=== PATIENT | male | born 1950 | race American Indian/Alaskan Native ===

== ENCOUNTER 2022-02-03 08:58 | Emergency (ER) | payer MEDICARE ==
--- NOTE | 2022-02-03 10:17 | Emergency Department Report ---
<BRIAN WHEAT - Last Filed: 02/03/22 14:54> ED Extremity Problem HPI - General Chief complaint: Extremity Problem,Nontraumatic Stated complaint: SWOLLEN LEGS Time Seen by Provider: 02/03/22 09:24 Source: patient, EMS Mode of arrival: Stretcher Limitations: Altered Mental Status - History of Present Illness Initial comments: 71-year-old male with a history of dementia brought in from a residential with bilateral lower leg swelling with discomfort for the last couple of days progressively getting worse. No rash or warmth reported. Patient however have history of CHF. No fever or chills noted. No other modifying or associated factors reported. Severity scale (0 -10): 0 - Related Data Allergies Allergy/AdvReac Type Severity Reaction Status Date / Time No Known Allergies Allergy Unverified 02/03/22 09:06 ED Review of Systems Comment: All other systems reviewed and negative Cardiovascular: edema. denies: chest pain ED Past Medical Hx - Past Medical History Hx Hypertension: Yes Hx Congestive Heart Failure: Yes Hx Diabetes: Yes Hx Dementia: Yes - Surgical History Past Surgical History?: No - Social History Smoking Status: Never Smoker Substance Use Type: None ED Physical Exam - General Limitations: Altered Mental Status, Other (Dementia) General appearance: alert, in no apparent distress - Head Head exam: Present: atraumatic, normal inspection - Eye Eye exam: Present: normal appearance Pupils: Present: normal accommodation - ENT ENT exam: Present: normal exam, normal orophraynx, mucous membranes moist - Neck Neck exam: Present: normal inspection. Absent: tenderness - Respiratory Respiratory exam: Present: normal lung sounds bilaterally. Absent: respiratory distress, accessory muscle use - Cardiovascular Cardiovascular Exam: Present: regular rate, normal rhythm, normal heart sounds - GI/Abdominal GI/Abdominal exam: Present: soft, normal bowel sounds. Absent: distended, tenderness - Extremities Exam Extremities exam: Present: normal capillary refill, pedal edema (+2 bilate rally). Absent: tenderness - Back Exam Back exam: Absent: tenderness - Neurological Exam Neurological exam: Present: alert, other (Demented) - Psychiatric Psychiatric exam: Present: normal affect, normal mood - Skin Skin exam: Present: warm, normal color ED Course - Reevaluation(s) Reevaluation #1: 02/03/22 14:56 Pt signed out to Dr Riley while waiting for doppler US to rule out DVT -- ED Medical Decision Making - Lab Data Result diagrams: 02/03/22 10:22 02/03/22 10:22 - Medical Decision Making Here with bilateral lower leg edema with swelling--with history of CHF this is likely acute on chronic heart failure symptoms--we will go ahead and get basic labs including CBC, CMP, D-dimer to rule out any infectious or electrolyte abnormality or DVT. Noted with unremarkable labs except elevated d-dimer so to rule out DVT -- doppler US order and pending at the time of sign out to Dr Riley at 15:00 PM -- ED Disposition Clinical Impression: Bilateral leg pain Disposition: HOME / SELF CARE / HOMELESS Is pt being admited?: No Does the pt Need Aspirin: No Condition: Stable Instructions: Pain Without a Known Cause Additional Instructions: Please follow-up with your regular doctor at your earliest convenience. You may return if your symptoms worsen. <ALLYSSA RILEY - Last Filed: 02/03/22 19:05> ED Review of Systems ROS: Stated complaint: SWOLLEN LEGS Other details as noted in HPI ED Course Vital Signs 02/03/22 02/03/22 02/03/22 09:00 09:14 12:59 Temperature 98.0 F 97.8 F 97.9 F Pulse Rate 82 68 72 Respiratory 16 20 20 Rate Blood Pressure 128/71 Blood Pressure 130/90 128/71 149/94 [Left] O2 Sat by Pulse 98 98 97 Oximetry 02/03/22 02/03/22 15:37 18:02 Temperature 97.9 F 97.8 F Pulse Rate 78 74 Respiratory 20 20 Rate Blood Pressure Blood Pressure 134/78 136/78 [Left] O2 Sat by Pulse 98 97 Oximetry ED Medical Decision Making - Lab Data Result diagrams: 02/03/22 10:22 02/03/22 10:22 - Medical Decision Making Ultrasound negative for DVT. I discussed results with the patient. He is stable for discharge home with return precautions. Critical care attestation.: If time is entered above; I have spent that time in minutes in the direct care of this critically ill patient, excluding procedure time. ED Disposition Is pt being admited?: No Does the pt Need Aspirin: No
[2022-02-03 11:11] LABS: Alanine Aminotransferase 28 units/L (7-56); Albumin 3.9 g/dL (3.9-5); BUN/Creatinine Ratio 13; Blood Urea Nitrogen 20 mg/dL (9-20); Calcium 8.9 mg/dL (8.4-10.2); Hemolysis Index 1
[2022-02-03 11:22] LABS: Basophils # (Auto) 0.1 K/mm3 (0.0-0.1); Eosinophils # (Auto) 0.1 K/mm3 (0.0-0.4); Eosinophils % (Auto) 3.2 % (0.0-4.3); Hematocrit 34.6 % (35.5-45.6); Hemoglobin 11.4 gm/dl (11.8-15.2); Lymphocytes # (Auto) 1.6 K/mm3 (1.2-5.4); Lymphocytes % (Auto) 37.1 % (13.4-35.0); Mean Corpuscular HGB Conc 33 % (32-34); Mean Corpuscular Volume 88 fl (84-94); Monocytes # (Auto) 0.4 K/mm3 (0.0-0.8); Monocytes % (Auto) 9.4 % (0.0-7.3); Platelet Count 211 K/mm3 (140-440); Red Blood Count 3.95 M/mm3 (3.65-5.03); Red Cell Distribution Width 14.8 % (13.2-15.2)
--- NOTE | 2022-02-03 17:19 | Vascular Lab Report ---
DUPLEX DOPPLER LOWER EXTREMITY VEINS, BILATERAL INDICATION / CLINICAL INFORMATION: bilateral edema with pain and elevated d-dimer. TECHNIQUE: Duplex doppler imaging was performed through the veins of both lower extremities using sheri ous compression and other maneuvers. COMPARISON: None available. FINDINGS: RIGHT COMMON FEMORAL VEIN: Negative. RIGHT FEMORAL VEIN: Negative. RIGHT POPLITEAL VEIN: Negative. RIGHT CALF VEINS: Negative. LEFT COMMON FEMORAL VEIN: Negative. LEFT FEMORAL VEIN: Negative. LEFT POPLITEAL VEIN: Negative. LEFT CALF VEINS: Negative. ADDITIONAL FINDINGS: None. IMPRESSION: 1. No sonographic evidence for DVT in either lower extremity. Signer Name: Randell Kennedy MD Signed: 02/03/2022 5:14 PM Workstation Name: [id number]
[2022-02-03 18:03] VITALS: BP 136/78
== END 2022-02-03 21:37 | disposition home or self-care (01) ==
LOC: ED 08:58
DX: M79.605 Pain in left leg (principal); M79.604 Pain in right leg; R41.82 Altered mental status, unspecified; E11.9 Type 2 diabetes mellitus without complications; I10 Essential (primary) hypertension
CPT/HCPCS: 36415; 80053; 83880; 84484; 85025; 85379; 93970; 99284